=== PATIENT | female | born 1960 | race Hispanic/Latino ===

== ENCOUNTER 2020-09-26 12:30 | Outpatient (CLI) | payer BC | END 2020-09-26 12:31 | disposition home or self-care (01) | LOC: BICMAMMO 12:30 | PROVIDERS: ATTEND Obstetrics & Gynecology | DX: Z12.31 Encounter for screening mammogram for malignant neoplasm of breast (principal) | CPT/HCPCS: 77063; 77067 ==

== ENCOUNTER 2021-09-27 09:07 | Outpatient (CLI) | payer BC | END 2021-09-27 09:08 | disposition home or self-care (01) | LOC: BICMAMMO 09:07 | PROVIDERS: ATTEND Family Medicine | DX: Z12.31 Encounter for screening mammogram for malignant neoplasm of breast (principal) | CPT/HCPCS: 77063; 77067 ==

== ENCOUNTER 2022-12-04 14:13 | Outpatient (CLI) | payer BC | END 2022-12-04 14:14 | disposition home or self-care (01) | LOC: BICMAMMO 14:13 | PROVIDERS: ATTEND Family Medicine | DX: Z13.820 Encounter for screening for osteoporosis (principal); M85.89 Other specified disorders of bone density and structure, multiple sites | CPT/HCPCS: 77080 ==

== ENCOUNTER 2024-10-01 10:22 | Outpatient (CLI) | payer MEDICARE, BC | END 2024-10-01 10:23 | disposition home or self-care (01) | LOC: BICMAMMO 10:22 | PROVIDERS: ATTEND Family Medicine | DX: Z12.31 Encounter for screening mammogram for malignant neoplasm of breast (principal) | CPT/HCPCS: 77063; 77067 ==